=== PATIENT | male | born 1995 | race African-American/Black ===

== ENCOUNTER 2017-11-25 11:54 | Emergency (ER) | payer OTHER ==
[2017-11-25 12:24] LABS: BILIRUBIN,URINE NEGATIVE (NEG); CLARITY,URINE CLOUDY; COLOR,URINE YELLOW; GLUCOSE,URINE NEGATIVE (NEG); NITRITE,URINE NEGATIVE (NEG); PH,URINE 6.5; PROTEIN,URINE NEGATIVE (NEG-TRACE)
[2017-11-25 12:33] LABS: BACTERIA,URINE 0 /HPF (0-FEW); RBC,URINE 0 /HPF (0-2); WBC,URINE TNTC /HPF (0-4)
[2017-11-25] MEDS: metroNIDAZOLE 500 MG TABLET PO (13:12)
[2017-11-25] MEDS: AZITHROMYCIN 250 MG TABLET. PO (13:13)
[2017-11-25] MEDS: cefTRIAXone IM 250 MG VIAL IM (13:15)
== END 2017-11-25 13:23 | disposition home or self-care (01) ==
LOC: ER 13:23
DX: Z20.2 Contact with and (suspected) exposure to infections with a predominantly sexual mode of transmission (principal)
CPT/HCPCS: 81001; 87491; 87591; 96372; 99284-25; J0696; Q0144

== ENCOUNTER 2018-05-21 10:23 | Emergency (ER) | payer SELFPAY ==
[~2018-05-21] VITALS: Ht 167.6 cm; Wt 78.5 kg
[~2018-05-21 10:23] MED LIST: CYCL10TA2 PO; NAPR500T8 PO
[2018-05-21 10:36] VITALS: BP 111/65
[2018-05-21] MEDS ORDERED: AZITHROMYCIN 250 MG TABLET. PO ONE (10:45)
[2018-05-21] MEDS ORDERED: cefTRIAXone IM 250 MG VIAL IM ONE (10:45)
--- NOTE | 2018-05-21 11:02 | PHYS DOC ---
Past Medical History Past Medical History: STD Past Surgical History: Other Additional Past Surgical Histo: finger Alcohol Use: None Drug Use: Marijuana Adult General Chief Complaint Chief Complaint: SEXUALLY TRANSMITTED DISEASE HPI HPI Patient is a 22 year old Male who presents with patient states he's had green penile discharge for the last 3-4 days. Patient states that it does hurt when he urinates for the last 3 days. Patient states he has a history of gonorrhea. Review of Systems Review of Systems Constitutional: Denies fever or chills [] Eyes: Denies change in visual acuity, redness, or eye pain [] HENT: Denies nasal congestion or sore throat [] Respiratory: Denies cough or shortness of breath [] Cardiovascular: No additional information not addressed in HPI [] GI: Denies abdominal pain, nausea, vomiting, bloody stools or diarrhea [] : Penile discharge. Denies dysuria or hematuria [] Musculoskeletal: Denies back pain or joint pain [] Integument: Denies rash or skin lesions [] Neurologic: Denies headache, focal weakness or sensory changes [] Endocrine: Denies polyuria or polydipsia [] All other systems were reviewed and found to be within normal limits, except as documented in this note. Current Medications Current Medications Current Medications Medications (Trade) Dose Ordered Sig/Max Start Time Stop Time Status Last Admin Dose Admin Azithromycin (Zithromax) 1,000 mg 1X ONCE 05/21/18 10:45 05/21/18 10:47 DC 05/21/18 10:54 1,000 MG Ceftriaxone Sodium (Rocephin Im) 250 mg 1X ONCE 05/21/18 10:45 05/21/18 10:47 DC 05/21/18 10:57 250 MG Allergies Allergies Allergies Coded Allergies Type Severity Reaction Last Updated Verified No Known Drug Allergies 12/26/15 No Physical Exam Physical Exam Constitutional: Well developed, well nourished, no acute distress, non-toxic appearance. [] HENT: Normocephalic, atraumatic, bilateral external ears normal, oropharynx moist, no oral exudates, nose normal. [] Eyes: PERRLA, EOMI, conjunctiva normal, no discharge. [] Neck: Normal range of motion, no tenderness, supple, no stridor. [] Cardiovascular:Heart rate regular rhythm, no murmur [] Lungs & Thorax: Bilateral breath sounds clear to auscultation [] Abdomen: Penile discharge. Bowel sounds normal, soft, no tenderness, no masses, no pulsatile masses. [] Skin: Warm, dry, no erythema, no rash. [] Back: No tenderness, no CVA tenderness. [] Extremities: No tenderness, no cyanosis, no clubbing, ROM intact, no edema. [] Neurologic: Alert and oriented X 3, normal motor function, normal sensory function, no focal deficits noted. [] Psychologic: Affect normal, judgement normal, mood normal. [] Current Patient Data Vital Signs Vital Signs Date Time Temp Pulse Resp B/P (MAP) Pulse Ox O2 Delivery O2 Flow Rate FiO2 05/21/18 10:36 97.9 66 18 111/65 (80) 96 Room Air 97.9 EKG EKG [] Radiology/Procedures Radiology/Procedures [] Course & Med Decision Making Course & Med Decision Making Patient is a 22 year old Male who presents with patient states he's had green penile discharge for the last 3-4 days. Patient states that it does hurt when he urinates for the last 3 days. Patient states he has a history of gonorrhea. Alert and oriented. Denies any other history or medications. Patient is given Rocephin and azithromycin in the ED. I did send a urine culture for chlamydia and gonorrhea. Patient refused to wait for results of his urinalysis. Patient is told to let all other sexual partners and of the need to be treated. No lesions are seen on his penis. [] Dragon Disclaimer Dragon Disclaimer This electronic medical record was generated, in whole or in part, using a voice recognition dictation system. Departure Departure Impression: Primary Impression: Sexually transmitted disease Disposition: HOME, SELF-CARE Condition: STABLE Referrals: NO PCP (PCP) Patient Instructions: Sexually Transmitted Disease Additional Instructions: follow up with primary care if you need to. Tell other partners to be treated. CHIQUITA BOSS APRN May 21, 2018 11:02
[2018-05-21 16:15] LABS: BILIRUBIN,URINE NEGATIVE (NEG); CLARITY,URINE CLEAR; COLOR,URINE YELLOW; NITRITE,URINE NEGATIVE (NEG); PROTEIN,URINE NEGATIVE (NEG-TRACE); UROBILINOGEN,URINE 0.2 mg/dL (0.2 mg/dL)
[2018-05-21 16:31] LABS: BACTERIA,URINE 0 /HPF (0-FEW); RBC,URINE OCC /HPF (0-2); WBC,URINE >40 /HPF (0-4)
== END 2018-05-21 11:27 | disposition home or self-care (01) ==
LOC: ER 10:23
DX: A63.8 Other specified predominantly sexually transmitted diseases (principal)
CPT/HCPCS: 81001; 87086; 87491; 87591; 96372; 99283; J0696; Q0144

== ENCOUNTER 2018-08-17 03:54 | Emergency (ER) | payer OTHER ==
[~2018-08-17] VITALS: Ht 170.2 cm; Wt 72.6 kg
[2018-08-17 04:15] VITALS: BP 149/64
[2018-08-17] MEDS ORDERED: PENI500T PO (04:26)
[2018-08-17] MEDS ORDERED: PRED50TA PO (04:31)
--- NOTE | 2018-08-17 04:38 | PHYS DOC ---
Past Medical History Past Medical History: STD Past Surgical History: Other Additional Past Surgical Histo: finger Alcohol Use: None Drug Use: Marijuana Adult General Chief Complaint Chief Complaint: SORE THROAT HPI HPI Patient is a 22 year old [M IWTH SORE THROAT X TWO DAYS SUBJ FEVER MINIMAL COUGH ALSO HAVING TWO WEEKS OF LOW BACK PAIN TWEAKED THE BACK WHILE LIFTING SOMETHING HAS NUMBNESS DOWN TO KNEE NO B/B INCONTINENCE. Allergies Allergies Allergies Coded Allergies Type Severity Reaction Last Updated Verified No Known Drug Allergies 12/26/15 No Physical Exam Physical Exam Constitutional: Well developed, well nourished, no acute distress, non-toxic appearance. [] HENT: Normocephalic, atraumatic, bilateral external ears normal, oropharynx moist, ORAL EXUDATE AND TONSILLAR SWELLING AND EXUDATE. POS LAD NOTED. Neck: Normal range of motion, no tenderness, supple, no stridor. [] NOrPulmonary: Normal respiratory effort no increased work of breathing no obvious chest wall traumaM Abdomen: Bowel sounds normal, soft, no tenderness, no masses, no pulsatile masses. [] Skin: Warm, dry, no erythema, no rash. [] Back: THERE IS RIGHT PARASPINOUS TTP NOTED. Extremities: No tenderness, no cyanosis, no clubbing, ROM intact, no edema. [] Neurologic: Alert and oriented X 3, 4/5 RLE , NUMBNESS DECREASED SENS LIGHT TOUCH RIGHT LEG. Psychologic: Affect normal, judgement normal, mood normal. [] EKG EKG [] Radiology/Procedures Radiology/Procedures [] Course & Med Decision Making Course & Med Decision Making RAPID STREP POSITIVE BACK PAIN LIKELY RADICULAR IN NATURE, PREDNISONE SHOULD HELP BOTH OF LETICIA ABOVE Pertinent Labs and Imaging studies reviewed. (See chart for details) [] Dragon Disclaimer Dragon Disclaimer This electronic medical record was generated, in whole or in part, using a voice recognition dictation system. Departure Departure Impression: Primary Impression: Strep pharyngitis Additional Impression: Back pain Disposition: 01 HOME, SELF-CARE Condition: STABLE Patient Instructions: Strep Throat Scripts Prednisone (PREDNISONE) 50 Mg Tablet 1 TAB PO DAILY, #5 TAB Prov: LOGAN MCKEON MD 08/17/18 Penicillin V Potassium (PENICILLIN V POTASSIUM) 500 Mg Tablet 1 TAB PO QID, #40 TAB Prov: LOGAN MCKEON MD 08/17/18 Problem Qualifiers LOGAN MCKEON MD Aug 17, 2018 04:38
== END 2018-08-17 04:37 | disposition home or self-care (01) ==
LOC: ER 03:54
DX: J02.0 Streptococcal pharyngitis (principal); B95.0 Streptococcus, group A, as the cause of diseases classified elsewhere; M54.5 Low back pain
CPT/HCPCS: 87880; 99283